=== PATIENT | female | born 1950 | race Caucasian/White ===

== ENCOUNTER → 2016-07-01 | Outpatient (CLI) | payer MEDICARE ==
[~2016-07-01] MED LIST: ALBU6.7H INH; ALEV220T14 PO; CIPR250T52 PO; CYAN1TAB22 PO; CYCL1TAB29 PO; CYCL5TAB PO; D 101000 PO; HYDR-3516 PO; HYDR-3533 PO; LEVO50TA4 PO; LIDOCAINE HCL 1% 30 ML VIAL ONE; LORA1TAB12 PO; MEDR4PAK PO; MELA1CAP PO; MIAC200S NASAL; NAPR220T95 PO; TEMA15CA PO; TOBRAMYCIN/DEXAMETHASONE OPTH OINT 3.5 GM TUBE ONE; TRAM50TA PO; VITA10003 PO; ZOCO20TA PO
== END ==
LOC: CPRE 10:15
PROVIDERS: ATTEND Optometrist Occupational Vision
DX: H25.812 Combined forms of age-related cataract, left eye (principal)

== ENCOUNTER → 2016-07-14 | Day surgery (SDC) | payer MEDICARE ==
[~2016-07-14] VITALS: Ht 151.1 cm; Wt 56.5 kg
[~2016-07-14] MED LIST changes: -CYCL1TAB29 PO; -HYDR-3516 PO; +LIDOCAINE HCL 1% 20 ML VIAL ONE; +LIDOCAINE HCL 2% JELLY 5 ML SYRINGE TOPICAL ONE; -MEDR4PAK PO; +PROPARACAINE HCL 0.5% OPHT SOLN 15 ML BTL RIGHT EYE ONE; +SODIUM CHLORID 0.9% 500 ML INJ 500 ML ONE; -TOBRAMYCIN/DEXAMETHASONE OPTH OINT 3.5 GM TUBE ONE
[2016-07-14 06:33] VITALS: BP 142/92; PULSE 97; RESP 20; TEMP 98.3; O2SAT 94
[2016-07-14] MEDS: TROPICAMIDE 1% OPHT SOLN 15 ML BTL RIGHT EYE SCH ×4 (06:45→07:00)
[2016-07-14] MEDS: PHENYLEPHRINE HCL 10% OPTH SOLN 5 ML BTL RIGHT EYE SCH ×4 (06:45→07:00)
[2016-07-14] MEDS: CYCLOPENTOLATE HCL 1% OPHT SOLN 2 ML BTL RIGHT EYE SCH ×4 (06:45→07:00)
[2016-07-14] MEDS: FLURBIPROFEN 0.03% OPHT SOLN 2.5 ML BTL RIGHT EYE SCH ×4 (06:45→07:00)
[2016-07-14] MEDS: TOBRAMYCIN/DEXAMETHASONE OPTH OINT 3.5 GM TUBE ONE ×2 (08:21→08:31)
[2016-07-14 08:40] VITALS: TEMP 97.9
[2016-07-14 09:05] VITALS: BP 151/76; PULSE 109; RESP 14; O2SAT 96
--- NOTE | 2016-07-17 04:40 | MP ---
cc: JERRY MCKEON M.D. [facility] #[id number] DATE OF SURGERY: 07/14/2016 PREOPERATIVE DIAGNOSIS: Visually significant cataract, right eye. POSTOPERATIVE DIAGNOSIS: Visually significant cataract, right eye. OPERATION: Phacoemulsification with posterior chamber lens implantation, right eye. SURGEON: Jerry Mckeon MD ANESTHESIA: Topical with MAC. COMPLICATIONS: None. PROCEDURE: After informed consent was obtained, the patient was brought into the operative suite and placed on appropriate monitors by the Anesthesia Service. The patient had been given dilating drops and topical lidocaine gel in the holding area. The patient's operative eye was then prepped and draped in the usual sterile fashion. A wire lid speculum was placed. Further 2% lidocaine was then dropped on the cornea prior to beginning the procedure. A paracentesis incision was made in the peripheral cornea with a 1 mm angel keratome. The anterior chamber was filled with viscoelastic. The anterior chamber was then entered through a stepped, clear corneal incision using a sharp 3 mm angel keratome. A circular tear capsulorrhexis was then made with a bent needle cystitome. Following hydrodissection of the lens nucleus with balance saline, phaco-emulsification of the nucleus was performed using a modified chopping technique. The remaining cortex was removed with irrigation/aspiration. The prior two procedures were both performed using the handpieces of the [employer] phaco unit. The capsular bag was then filled with viscoelastic. The intraocular lens was then injected into the capsular bag and positioned. The type of intraocular lens and its power can be found elsewhere in this chart. The remaining viscoelastic was then removed from the anterior chamber with the IA handpiece. The anterior chamber was reformed with balanced saline. The wound was then closed securely with stromal hydration. It was found to be watertight to an intraocular pressure of at least 30 mmHg by palpation. A small amount of balanced salt solution was then removed through the paracentesis site and the intraocular pressure at the end of the case was approximately 20 by palpation. All drapes were then removed. TobraDex ointment was then placed in the eye, which was closed beneath a semi-pressure patch dressing. The patient tolerated this procedure well and left the operating room awake and alert. The patient is to follow-up in my office in the morning. MD FROYLAN Rubalcava /11:44 AM /4:37 AM
== END | disposition home or self-care (01) ==
LOC: CSDC 05:55
PROVIDERS: ATTEND Optometrist Occupational Vision
DX: H25.811 Combined forms of age-related cataract, right eye (principal)
CPT/HCPCS: 00142; 66984; J7040; V2632

== ENCOUNTER 2016-08-18 06:43 | Emergency (ER) | payer MEDICARE ==
[~2016-08-18] VITALS: Ht 152.4 cm; Wt 58.0 kg
[~2016-08-18 06:43] MED LIST changes: -CIPR250T52 PO; -CYCL5TAB PO; -D 101000 PO; -HYDR-3533 PO; -LIDOCAINE HCL 1% 20 ML VIAL ONE; -LIDOCAINE HCL 1% 30 ML VIAL ONE; -LIDOCAINE HCL 2% JELLY 5 ML SYRINGE TOPICAL ONE; -PROPARACAINE HCL 0.5% OPHT SOLN 15 ML BTL RIGHT EYE ONE; -SODIUM CHLORID 0.9% 500 ML INJ 500 ML ONE; -TRAM50TA PO
[2016-08-18 06:51] VITALS: BP 151/90; PULSE 130; RESP 16; TEMP 97.6; O2SAT 92
[2016-08-18] MEDS ORDERED: KETOROLAC TROMETHAMINE 60 MG/2 ML (IM) VIAL IM ONE (07:45)
--- NOTE | 2016-08-18 07:56 | RADHPO ---
EXAM DATE/TIME: 08/18/2016 07:43 [place] COMPARISON: No previous studies available for comparison. INDICATIONS : Fell this morning and injured left ankle, large bruise on medial side, swelling 360 degrees around an kle MEDICAL HISTORY : None. SURGICAL HISTORY : None. ENCOUNTER: Initial ACUITY: 1 day PAIN SCORE: 10/10 LOCATION: Left ankle FINDINGS: 2 views of the left ankle demonstrate an oblique nondisplaced fracture through the medial malleolus. A questionable fracture through the lateral malleolus is present as well. Ankle mortise is intact. Th ere is medial and lateral ankle soft tissue swelling. The bones appear mildly undermineralized. There are degenerative changes at the talonavicular joint. There is likely a joint effusion. No radiopaque foreign body is visualized. CONCLUSION: There is an oblique nondisplaced fracture through the medial malleolus and questionable nondisplaced fracture through the lateral malleolus. There is soft tissue swelling diffusely around the ankle. Javid Giron MD on August 18, 2016 at 7:52 Board Certified Radiologist. This report was verified electronically.
--- NOTE | 2016-08-18 08:18 | PD ---
HPI Chief Complaint: Injury Time Seen by Provider: 07:26 Travel History International Travel<30 days: No Contact w/Intl Traveler<30days: No Traveled to known affect area: No History of Present Illness HPI 66yo F with PMH of osteoporosis presents to the ED with c/o left ankle pain s/p twist and fall at 4am today. States she was going to bathroom and she tripped on her pants and heard a crack. She was able to ambulate on it but with a lot of pain. Denies any other injuries including head trauma, chest pain, sob, n/v , abdominal pain, weakness or numbness. Pt took alleve at 4am with no relieve. Pt denies any anticoagulation. Pt states she is always tachycardic and her PMD states not to worry about it. PFSH Past Medical History Hx Anticoagulant Therapy: No Cancer: No Cardiovascular Problems: No High Cholesterol: Yes Diabetes: No Diminished Hearing: No Endocrine: Yes Gastrointestinal Disorders: Yes (ESOPHAGEAL DILITATION X 1) Genitourinary: No Hepatitis: No Hiatal Hernia: No Hypertension: No Immune Disorder: No Medical other: No Musculoskeletal: Yes (OSTEOPOROSIS, CHRONIC BACK AND LEG PAIN) Neurologic: No (PAST HX CONCUSSION) Psychiatric: Yes (ANXIETY) Reproductive: No Respiratory: No (ENVIRONMENTAL ALLERGIES) Thyroid Disease: Yes (HYPOTHYROID) Tetanus Vaccination: Unknown ?: Not Past Surgical History Abdominal Surgery: No AICD: No Body Medical Devices: LEFT FEMUR MACKENZIE, RIGHT FOOT SCREWS, Cardiac Surgery: No Ear Surgery: No Endocrine Surgery: No Eye Surgery: Yes (TONSILLECTOMY) Genitourinary Surgery: No Gynecologic Surgery: No Joint Replacement: No Neurologic Surgery: No Oral Surgery: Yes (REPAIR FRACTURE MAXILLA WITH PERMANENT TEETH IMPLANTED) Pacemaker: No Thoracic Surgery: No Tonsillectomy: Yes Social History Alcohol Use: No Tobacco Use: No Substance Use: No Allergies-Medications (Allergen,Severity, Reaction): Coded Allergies: Morphine (Verified Allergy, Intermediate, HALLUCINATIONS, 08/18/16) Sulfa (Verified Allergy, Unknown, PT STATES NOT ALLERGIC, 08/18/16) Ambien (Verified Adverse Reaction, Intermediate, Confusion, 08/18/16) Reported Meds & Prescriptions Reported Meds & Active Scripts Active Lortab (Hydrocodone-Acetaminophen) 5-325 Mg Tab 1 Tab PO Q6H PRN Temazepam 15 Mg Cap 15 Mg PO HS PRN Miacalcin Nasal [place] (Calcitonin [place]) 200 Units/Act Soln 1 [place] NASAL DAILY Alternate 1 nare every other day Lorazepam 1 Mg Tab 1 Mg PO BID PRN Reported Aleve (Naproxen Sodium) 220 Mg Tab 220 Mg PO HS PRN Aleve Arthritis (Naproxen Sodium) 220 Mg Tab 220 Mg PO DAILY Melatonin 1 Mg Cap Unknown Dose PO HS PRN Vitamin B-12 (Cyanocobalamin) 5,000 Mcg Tab 1 Tab PO DAILY Vitamin D-3 (Cholecalciferol) 1,000 Unit Tab 1,000 Units PO DAILY Zocor (Simvastatin) 20 Mg Tab 20 Mg PO DAILY Levothyroxine (Levothyroxine Sodium) 50 Mcg Tab 50 Mcg PO HS Proventil Hfa 6.7 GM Inh (Albuterol Sulfate) 90 Mcg/Act Aer 2 Puff INH Q4HR PRN Review of Systems Except as stated in HPI: all other systems reviewed are Neg Physical Exam Narrative GENERAL: 66yo F in mild distress. SKIN: Warm and dry. HEAD: Atraumatic. Normocephalic. NECK: Trachea midline. No JVD. CARDIOVASCULAR: Tachycardic. No murmur appreciated. RESPIRATORY: No accessory muscle use. Clear to auscultation. Breath sounds equal bilaterally. GASTROINTESTINAL: Abdomen soft, non-tender, nondistended. MUSCULOSKELETAL: Left ankle: +Ecchymoses and edema medial malleolus with abrasion. +TTP. +Edema and TTP in lateral malleolus. DP 2+. Sensation intact. FROM left knee. No ttp. NEUROLOGICAL: Awake and alert. No obvious cranial nerve deficits. Motor grossly within normal limits. Normal speech. PSYCHIATRIC: Appropriate mood and affect; insight and judgment normal. Data Data Last Documented VS Vital Signs Date Time Temp Pulse Resp B/P Pulse Ox O2 Delivery O2 Flow Rate FiO2 08/18/16 08:31 116 16 140/80 94 Room Air 08/18/16 06:51 97.6 Orders Ankle, Limited (Ap&Lat) (08/18/16 ) Ketorolac Inj (Toradol Inj) (08/18/16 07:45) Electrocardiogram (08/18/16 ) Splint Or Brace Apply/Monitor (08/18/16 08:36) Acetamin-Hydrocod 325-5 Mg (Lejunior 5-325 (08/18/16 09:00) Fiberglass Short Leg Splint Ad (08/18/16 ) [facility] Medical Decision Making Medical Screen Exam Complete: Yes Emergency Medical Condition: Yes Interpretation(s) EKG: Sinus tachycardia at 117bpm. Normal axis. No ST segment elevation or depression. Last Impressions Ankle X-Ray 08/18/16 0000 Signed Impressions: Service Date/Time: August 07:43 - CONCLUSION: There is an oblique nondisplaced fracture through the medial malleolus and questionable nondisplaced fracture through the lateral malleolus. There is soft tissue swelling diffusely around the ankle. Javid Giron MD Differential Diagnosis Ankle fracture vs. sprain Narrative Course 66yo F with left ankle pain s/p trip and twist today. States she had a crack. Xray left ankle showed oblique nondisplaced fracture through medial malleolus and questionable nondisplaced fracture through lateral malleolus. Discussed with orthopedic surgeon electronics parts sales representative Dr. Arias and states she can follow up as outpatient after splint. No weight bearing on left leg. Posterior splint placed. Pt already have crutches. Instructed pt to follow up as outpatient. Return precautions given. HR at triage was 130bpm. Repeat HR in medical bed is 116bpm and states that this is her baseline. Denies any chest pain, sob, dizziness. Diagnosis Primary Impression: Bimalleolar ankle fracture Qualified Code: S82.842A - Bimalleolar ankle fracture, left, closed, initial encounter Referrals: Jean-Claude Arias Jr., MD 1 day Left bimalleolar fracture Patient Instructions: General Instructions Departure Forms: Tests/Procedures Additional Instructions: Please call Dr. Arias's office for an appointment and do not put weight on left leg. Please keep your splint on and use crutches to ambulate and not bear weight on left leg. Return to the ED if symptoms worsen. Please do not go on your cruise tomorrow and follow up with Dr. Arias's office. Med/Other Pt SpecificInfo: Prescription(s) given Scripts Hydrocodone-Acetaminophen (Lortab)5-325 Mg Tab1 Tab PO Q6H PRN (PAIN) #20 TAB Ref 0 Prov:Domi Felder 08/18/16 Disposition: 01 DISCHARGE HOME Condition: Stable FelderDomi salmon Aug 18, 2016 08:18
[2016-08-18 08:31] VITALS: BP 140/80; PULSE 116; RESP 16; O2SAT 94
[2016-08-18] MEDS ORDERED: HYDR-3533 PO (08:48)
[2016-08-18] MEDS ORDERED: ACETAMINOPHEN/HYDROcodone 325 MG/5 MG TAB PO ONE (09:00)
--- NOTE | 2016-08-19 20:25 | EKG ---
Date Performed: 08/18/2016 Time Performed: 08:47:44 PTAGE: 66 years EKG: Sinus tachycardia Normal ECG except for rate PREVIOUS TRACING : 01/04/1999 13.35 Compared to prior tracing no significant change DOCTOR: Cody Kurtz Interpretating Date/Time 08/19/2016 20:24:28
[2016-09-30] MEDS ORDERED: CIPR250T52 PO (15:38)
[2016-10-11] MEDS ORDERED: LORA1TAB12 PO (15:41)
[2016-11-30] MEDS ORDERED: CYCL5TAB PO (10:09)
[2016-11-30] MEDS ORDERED: TRAM50TA PO (10:09)
[2016-11-30] MEDS ORDERED: D 101000 PO (10:09)
== END 2016-08-18 10:06 | disposition home or self-care (01) ==
LOC: PHED 06:43 → PHEFT 10:06
DX: S82.845A Nondisplaced bimalleolar fracture of left lower leg, initial encounter for closed fracture (principal); R00.0 Tachycardia, unspecified; E78.00 Pure hypercholesterolemia, unspecified; E03.9 Hypothyroidism, unspecified; Z87.19 Personal history of other diseases of the digestive system; Z87.39 Personal history of other diseases of the musculoskeletal system and connective tissue; Z86.59 Personal history of other mental and behavioral disorders; W01.0XXA Fall on same level from slipping, tripping and stumbling without subsequent striking against object, initial encounter
CPT/HCPCS: 29515; 73600; 93005; 96372; 99283; J1885

== ENCOUNTER → 2017-07-17 | Day surgery (SDC) | payer MEDICARE ==
[~2017-07-17] VITALS: Ht 154.9 cm; Wt 54.5 kg
[~2017-07-17] MED LIST changes: +CALC200S NASAL; +CHLORHEXIDINE GLUCONATE 2 % 1 PACK (2 CLOTHS) TOPICAL PRN; +CYCL5TAB PO; +D 101000 PO; +HYDR-3516 PO; +LACTATED RINGER'S 1000 ML IV PRN; +LIDOCAINE HCL 1% PF 30 ML VIAL ONE; +LIDOCAINE HCL 2% JELLY 5 ML SYRINGE TOPICAL ONE; -MELA1CAP PO; +METOPROLOL TARTRATE 25 MG TAB PO PRN; -MIAC200S NASAL; +OMEP20TA93 PO; +POVIDONE IODINE 5% (ANTISEPSIS KIT) 4 APPLICATIONS EACH NARE PRN; +PROPARACAINE HCL 0.5% OPHT SOLN 15 ML BTL LEFT EYE ONE; +SODIUM CHLORID 0.9% 500 ML IV PRN; +TOBRAMYCIN/DEXAMETHASONE OPTH OINT 3.5 GM TUBE ONE; +TRAM50TA PO; -VITA10003 PO
[2017-07-17] MEDS: TROPICAMIDE 1% OPHT SOLN 15 ML BTL LEFT EYE SCH ×4 (08:40→08:55)
[2017-07-17] MEDS: FLURBIPROFEN 0.03% OPHT SOLN 2.5 ML BTL LEFT EYE SCH ×4 (08:40→08:55)
[2017-07-17] MEDS: CYCLOPENTOLATE HCL 1% OPHT SOLN 2 ML BTL LEFT EYE SCH ×4 (08:40→08:55)
[2017-07-17] MEDS: PHENYLEPHRINE HCL 10% OPTH SOLN 5 ML BTL LEFT EYE SCH ×4 (08:40→08:55)
[2017-07-17 10:00] VITALS: TEMP 97.8
--- NOTE | 2017-07-17 10:03 | MP ---
cc: JERRY MCKEON M.D. [facility] #: [id number] DATE: July 17, 2017 PREOPERATIVE DIAGNOSIS: Visually significant cataract left eye. POSTOPERATIVE DIAGNOSIS: Visually significant cataract left eye. OPERATION: Phacoemulsification with posterior chamber lens implantation, left eye. SURGEON: Jerry Mckeon MD ANESTHESIA: Topical with MAC. COMPLICATIONS: None. PROCEDURE: After informed consent was obtained, the patient was brought into the operative suite and placed on appropriate monitors by the Anesthesia Service. The patient had been given dilating drops and topical lidocaine gel in the holding area. The patient's operative eye was then prepped and draped in the usual sterile fashion. A wire lid speculum was placed. Further 2% lidocaine was then dropped on the cornea prior to beginning the procedure. A paracentesis incision was made in the peripheral cornea with a 1 mm angel keratome. The anterior chamber was filled with viscoelastic. The anterior chamber was then entered through a stepped, clear corneal incision using a sharp 3 mm angel keratome. A circular tear capsulorrhexis was then made with a bent needle cystitome. Following hydrodissection of the lens nucleus with balance saline, phacoemulsification of the nucleus was performed using a modified chopping technique. The remaining cortex was removed with irrigation/aspiration. The prior two procedures were both performed using the handpieces of the [employer] phaco unit. The capsular bag was then filled with viscoelastic. The intraocular lens was then injected into the capsular bag and positioned. The type of intraocular lens and its power can be found elsewhere in this chart. The remaining viscoelastic was then removed from the anterior chamber with the IA handpiece. The anterior chamber was reformed with balanced saline. The wound was then closed securely with stromal hydration. It was found to be watertight to an intraocular pressure of at least 30 mmHg by palpation. A small amount of balanced salt solution was then removed through the paracentesis site and the intraocular pressure at the end of the case was approximately 20 by palpation. All drapes were then removed. TobraDex ointment was then placed in the eye, which was closed beneath a semi-pressure patch dressing. The patient tolerated this procedure well and left the operating room awake and alert. The patient is to follow-up in my office in the morning. MD CINTIA Rubalcava/ROBIN /9:54 AM /9:58 AM
[2017-07-17 10:25] VITALS: BP 128/80; PULSE 101; RESP 16; O2SAT 96
== END | disposition home or self-care (01) ==
LOC: PHSDC 07:15
PROVIDERS: ATTEND Optometrist Occupational Vision
DX: H25.812 Combined forms of age-related cataract, left eye (principal)
CPT/HCPCS: 00142; 66984; J7040; V2632